=== PATIENT | male | born 1945 | race Caucasian/White ===

== ENCOUNTER 2016-11-24 08:29 | Day surgery (SDC) | payer MEDICARE, OTHER ==
--- NOTE | ~2016-11-24 | EGD ---
EGD REPORT [facility] [address] [id number] NAME: VASYL RICH : [birth year] STATUS : REG [facility]#: [id number] AGE: 71 ADM/REG DATE : 11/24/16 MR#: [id number] REPORT SERV DATE: 11/24/16 DICTATED BY: JULIAN WATSON DATE: 11/24/16 REPORT STATUS : Draft TRANSCRIBED BY: [employer] DATE: 11/24/16 [facility] Patient Name: Vasyl Rich Date of : 1945 Attending MD: JULIAN WATSON, Procedure Date No Time: 11/24/2016 Procedure: Flexible Sigmoidoscopy Indications: Hematochezia Referring MD: WILY STAPLES III, MD Medicines: Monitored Anesthesia Care Complications: No immediate complications. Estimated blood loss: None. Procedure: Pre-Anesthesia Assessment: - ASA Grade Assessment: II - A patient with mild systemic disease. After obtaining informed consent, the endoscope was passed under direct vision. Throughout the procedure, the patient's blood pressure, pulse, and oxygen saturations were monitored continuously. The GIF [id number] was introduced through the anus and advanced to the rectum. The flexible sigmoidoscopy was accomplished without difficulty. The patient tolerated the procedure well. Findings: Diffuse severe inflammation characterized by adherent blood, altered vascularity, congestion (edema), friability and deep ulcerations was found in the proximal rectum. Biopsies were taken with a cold forceps for histology. Verification of patient identification for the specimen was done. Estimated blood loss was minimal. Diffuse mild inflammation characterized by congestion (edema) and friability was found in the distal rectum. Biopsies were taken with a cold forceps for histology. Verification of patient identification for the specimen was done. Estimated blood loss was minimal. Impression: - Diffuse severe inflammation was found in the proximal rectum. Biopsied. - Diffuse mild inflammation was found in the distal rectum. Biopsied. Recommendation: - Return to previous diet. - Continue present medications. - Await pathology results. Procedure Code(s): --- Professional --- 43635, 52, Sigmoidoscopy, flexible; with biopsy, single EGD REPORT [facility] [address] [id number] NAME: VASYL RICH : [birth year] STATUS : REG [facility] PAT#: [id number] AGE: 71 ADM/REG DATE : 11/24/16 MR#: [id number] REPORT SERV DATE: 11/24/16 DICTATED BY: JULIAN WATSON DATE: 11/24/16 REPORT STATUS : Draft TRANSCRIBED BY: [employer] DATE: 11/24/16 or multiple Diagnosis Code(s): --- Professional --- K52.9, Noninfective gastroenteritis and colitis, unspecified K92.1, Melena CPT copyright 2013 [employer]. All rights reserved. The codes documented in this report are preliminary and upon quality management nurse review may be revised to meet current compliance requirements. JULIAN WATSON, 11/24/2016 10:15 AM Number of Addenda: 0 Note Initiated On: 11/24/2016 9:46 AM [facility] [address] [id number]
[~2016-11-24 08:29] MED LIST: APRES25 PO; B12250T PO; CALTRA600D PO; CELEXA10 PO; CELEXA20 PO; CIALIS5 MG PO; CIP5 PO; COSAMIN DS1 TAB PO; FISH-EPA1000 MG PO; FLOMAX4 PO; GLUCCHONDR PO; GLUCOSAMINEPO; GLUCOSAMINEPO PO; HYDROCODONE PO; LEVAQUIN750 MG PO; LIBRAX; LIBRAX PO; LOP25 PO; LORT7 PO; LUPRON2 WEEK IM; Lupron IM; NIACIN 500 PO; NIACOR500 MG PO; NORCO1 TA1 PO; NORCO1 TAB PO; OMNICEF300 PO; OS500+D PO; P5 PO; PROBIOTIC OTC PO; PROBIOTIC PO; PYR200 PO; SLO-NIACIN500 MG PO; URIBEL PO; VICODINTAB PO; ZESTORETIC1 TAB PO; ZOSYN375 IV; ZYTIGA250 MG PO; [UNRECOGNIZED DRUG - OTHER] PO
== END 2016-11-24 23:59 | disposition home or self-care (01) ==
LOC: DMU 08:29
PROVIDERS: Internal Medicine Gastroenterology
PROC: 0DBP8ZX Excision of Rectum, Via Natural or Artificial Opening Endoscopic, Diagnostic (ICD-10-PCS; principal; 2016-11-24 10:00)
DX: K62.6 Ulcer of anus and rectum (principal); I10 Essential (primary) hypertension; Z88.5 Allergy status to narcotic agent; Z79.52 Long term (current) use of systemic steroids; Z79.899 Other long term (current) drug therapy; Z98.890 Other specified postprocedural states; Z90.49 Acquired absence of other specified parts of digestive tract
CPT/HCPCS: 88305